=== PATIENT | male | born 1985 | race African-American/Black ===

== ENCOUNTER 2019-03-12 13:52 | Emergency (ER) | payer BC, SELFPAY ==
[2019-03-12 13:53] VITALS: BP 121/66; PULSE 75; RESP 16; TEMP 36.4; BMI 24.5
--- NOTE | 2019-03-12 14:12 | ED.DCSUM_ITS ---
History of Present Illness Chief Complaint: Abd Pain Informant: Patient Onset: Today Context: Sudden Onset Timing: Continuous Quality: Discomfort Location: Epigastrium Current Severity: Mild Maximum Severity: Moderate Worsened by: Nothing Relieved by: Nothing Associated Symptoms: Radiation through to the back Narrative: Patient is a 33-year-old male on no medication with no past medical history presents with epigastric pain. Patient states he was drinking last evening. He had 4-5 drinks throughout the night. He denies hematemesis, melena hematochezia. He states he forced himself to vomit. There was no improvement. He denies food intolerance. He denies history of pancreatitis. He denies shortness of breath, dyspnea on exertion, orthopnea or PND. There is no history of trauma. - Past Medical History (1) No significant past medical history Status: Acute Past Medical History - Allergies and Home Meds Allergies/Adverse Reactions: Allergies No Known Allergies Allergy (Verified 03/12/19 13:55) Primary Care Physician: Miguel Dill MD [Primary Care Provider] - Prior records reviewed: No Past Medical History: None Surgical History: no surgical history Lives: Spouse/ Significant Other Smoking Status: Current every day smoker Alcohol: Rare Drugs: None Review of Systems General: Denies: Chills, Fever, Sweats Eyes: Denies: Visual changes - bilaterally, Blurred Vision - bilaterally, Diplopia ENT: Denies: Bilateral ear pain, Rhinorrhea, Sore throat Cardiovascular: Reports: Chest pain. Denies: Palpitations, Heart racing Respiratory: Denies: Dyspnea, Cough, Dyspnea on exertion, Orthopnea, Paroxysmal nocturnal dyspnea Gastrointestinal: Reports: Abdominal pain, Nausea, Vomiting. Denies: Diarrhea, Constipation, Melena, Hematochezia, -, - Musculoskeletal: Reports: Back pain. Denies: Myalgias, Arthralgias, Neck pain, Swelling, Extremity Pain Skin: Denies: Rash, Wounds Neurological: Denies: Headache, Weakness, Parasthesia, Numbness Psych: Denies: Depression, Anxiety Hematologic: Denies: Easy bruising, Easy bleeding Allergy: Denies: Uticaria, Swelling of the mouth Physical Exam Vital Signs/Narrative: Vital Signs Temp Pulse Resp BP 03/12/19 13:53 97.5 F L 75 16 121/66 H Inital Vital Signs reviewed: Yes General: Well nourished, Well developed, No Acute Distress Head: Normocephalic, Atraumatic Eyes: Perrl, EOMI ENT: Moist mucous membranes, No rhinorrhea Neck: Supple, Nontender Cardiovascular: Regular rate, Regular rhythm, No murmurs Respiratory: No distress, CTA bilaterally, Chest nontender Abdomen: Soft, Nondistended, Normal bowel sounds, No masses, Tender - In the epigastric area and left upper quadrant. Negative for: Hepatomegaly, Splenomegaly, Mass, Pulsatile mass Rectal: Deferred Back: Nontender, Normal Inspection. Negative for: CVA tenderness Extremities: Nontender, No edema Skin: Normal color, No rash Neurological: Alert, Oriented x3, Cranial nerves II-XII grossly intact, Normal Strength, Normal Sensation Psychological: Normal affect, Normal Mood Diagnostic/Tx/Re-eval Laboratory Results 03/12/19 03/12/19 14:25 14:25 WBC 14.8 H RBC 5.17 Hgb 15.7 Hct 45.0 MCV 87.0 MCH 30.4 MCHC 34.9 RDW 12.2 RDW Differential 38.7 Plt Count 172 MPV 12.1 H Immature Gran % (Auto) 0.300 Neut % (Auto) 82.6 H Lymph % (Auto) 9.9 L Warrick % (Auto) 7.0 Eos % (Auto) 0.1 Baso % (Auto) 0.1 Absolute Neuts (auto) 12.3 H Absolute Lymphs (auto) 1.46 Total Counted Not Reportable Sodium 139 Potassium 4.0 Chloride 108 H Carbon Dioxide 26.0 Anion Gap 5 BUN 12 Creatinine 0.93 Estim Creat Clear Calc 125.16 Est GFR (MDRD) Af Amer 120 Est GFR (MDRD) Non-Af 99 BUN/Creatinine Ratio 12.9 Glucose 103 Calcium 8.6 Total Bilirubin 0.90 Direct Bilirubin 0.23 AST 20 ALT 23 Alkaline Phosphatase 74 Total Protein 7.6 Albumin 4.2 Globulin 3.4 Lipase 344 - Rhythm Strip Rhythm Strip: Sinus Rhythm Rate: 77 Ectopy: None - Medical Decision Making With epigastric and left upper quadrant after eating and drinking need to evaluate for pancreatitis. This may represent esophagitis, gastritis peptic ulcer disease. Appropriate blood work was obtained and he was treated with IV Pepcid. Patient report did transient improvement after IV Pepcid. GI cocktail was ordered. Patient was informed of his results., 15:20 Patient was reassessed at 1540. He reports improvement after GI cocktail. The pain is not resolved. Since patient did not have hematemesis and denies black or maroon stool there is no concern for acute GI bleed. Therefore will discharge to home with appropriate home-going instructions. ED Disposition - Plan for ED Patient: Disposition: Home or Assisted Living Diagnosis: Gastritis due to alcohol without hemorrhage Instructions: ED PUD Vs Gastritis Referrals: Miguel Dill MD [Primary Care Provider] - 3-5 Days Additional Instructions: Take either Mylanta or Maalox every 4-6 hours for the next 24 hours.
[2019-03-12 14:38] LABS: Absolute Lymphocyte Count 1.46 X10^3/ul (0.83-4.51); Absolute Neutrophil Count 12.3 X10^3/uL (2.0-7.7); Basophil# 0.02 X10^3/uL; Basophil% 0.1 % (0-1); Eosinophil# 0.02 X10^3/uL; Eosinophils% 0.1 % (0-5); Hemoglobin 15.7 g/dl (13.0-16.5); Lymphocyte # 1.46 X10^3/ul (4.0); Lymphocyte % 9.9 % (19-41); Mean Corp Hgb Conc 34.9 g/gl (32-36); Mean Corpuscular Hgb 30.4 pg (27.0-32.0); Mean Platelet Vol. 12.1 fl (6.2-12.0); Monocyte# 1.03 X10^3/uL; Neutrophil # 12.25 X10^3/uL (2.7-7.7); Neutrophil % 82.6 % (47-70); Platelet Count 172 K/mm3 (150-450); RBC Distribution Width CV 12.2 % (11.6-14.6); RBC Distribution Width SD 38.7 fl (35.1-43.9); Red Blood Count 5.17 M/mm3 (4.6-6.2); White Blood Count 14.8 K/mm3 (4.4-11.0)
[2019-03-12 14:41] LABS: POSITIVE COUNT NO; POSITIVE DIFFERENTIAL NO; POSITIVE MORPHOLOGY NO
[2019-03-12 14:51] LABS: AST(SGOT) 20 U/L (15-37); Alanine Aminotransfer ALT/SGPT 23 U/L (16-61); Albumin, Serum 4.2 g/dL (3.2-5.0); Alkaline Phosphatase 74 U/L (45-117); Anion Gap 5 (5-15); BUN 12 mg/dL (7-18); BUN/Creat Ratio 12.9 RATIO (10-20); Bilirubin, Direct 0.23 mg/dL (0.00-0.30); Calcium,Total 8.6 mg/dL (8.5-10.1); Chloride 108 mmol/L (98-107); Creatinine, Serum 0.93 mg/dL (0.70-1.30); EST Glomerular Filtration Rate 99 mL/min (>60); Est Glom Filt Rate - Afr Amer 120 mL/min (>60); Estimated Creatinine Clearance 125.16 ml/min; Globulin 3.4 g/dL (2.2-4.2); Glucose 103 mg/dL (74-106); Lipase 344 U/L (73-393); Protein, Total 7.6 g/dL (6.4-8.2); Sodium Level 139 mmol/L (136-145)
[2019-03-12] MEDS: Mag Hydrox/Al Hydrox/Simeth 30 ML UDC PO (15:36)
[2019-03-12 15:59] VITALS: BP 114/72; PULSE 61; RESP 16; O2SAT 98
== END 2019-03-12 16:00 | disposition home or self-care (01) ==
PROVIDERS: Emergency Provider Emergency Medicine; Family Provider Family Medicine; PCP Family Medicine
DX: K29.20 Alcoholic gastritis without bleeding (principal); F10.10 Alcohol abuse, uncomplicated; Y90.9 Presence of alcohol in blood, level not specified
CPT/HCPCS: 80048; 80076; 83690; 85025; 96374; 99284; A4216; J3490

== ENCOUNTER → 2021-11-10 14:07 | Outpatient (CLI) | payer BC, SELFPAY | PROVIDERS: PCP Family Medicine; Referring Provider Family Medicine; Visit Provider Family Medicine | DX: U07.1 COVID-19 (principal) | CPT/HCPCS: 87635; 87804; C9803; U0005; U0003 ==

== ENCOUNTER 2022-01-01 16:20 | Outpatient (CLI) | payer BC, SELFPAY ==
[2022-01-01 18:01] LABS: ALB/GLOB Ratio 1.1 RATIO (0.9-2.4); AST(SGOT) 23 U/L (15-37); Alanine Aminotransfer ALT/SGPT 29 U/L (16-61); Albumin, Serum 4.1 g/dL (3.2-5.0); Alkaline Phosphatase 73 U/L (45-117); Anion Gap 4 (5-15); BUN 8 mg/dL (7-18); BUN/Creat Ratio 8.9 RATIO (10-20); Chloride 105 mmol/L (98-107); Cholesterol 127 mg/dL (200); EST Glomerular Filtration Rate 102 mL/min (>60); Est Glom Filt Rate - Afr Amer 123 mL/min (>60); Globulin 3.6 g/dL (2.2-4.2); Glucose 94 mg/dL (74-106); High Density Lipoprotein 60 mg/dL; Potassium 4.1 mmol/L (3.5-5.1); Protein, Total 7.7 g/dL (6.4-8.2); Sodium Level 138 mmol/L (136-145); Triglycerides 38 mg/dL; Very Low Density Lipoprotein 8 mg/dL (5-40)
== END 2022-01-01 23:59 | disposition home or self-care (01) ==
LOC: MTLAB 16:22
PROVIDERS: PCP Family Medicine; Referring Provider Physician Assistant Medical; Visit Provider Physician Assistant Medical
DX: L70.0 Acne vulgaris (principal); Z79.899 Other long term (current) drug therapy
CPT/HCPCS: 36415; 80053; 80061

== ENCOUNTER 2024-10-02 22:43 | Emergency (ER) | payer OTHER, SELFPAY ==
[2024-10-02 22:44] VITALS: BP 142/77; PULSE 70; RESP 16; TEMP 36.2; O2SAT 100; BMI 22.2
--- NOTE | 2024-10-02 22:50 | EDS_ITS ---
HPI HPI - Psych History of Present Illness Chief Complaint: Mental Health [facility] Medical History (Updated 10/02/24 @ 22:52 by Jodee Can) Marijuana smoker ADD (attention deficit disorder) Home Medications ?Medication ?Instructions ?Recorded ?Last Taken ?Type lisdexamfetamine 30 mg capsule 30 mg PO DAILY 10/02/24 Unknown History (Vyvanse) Allergy/AdvReac Type Severity Reaction Status Date / Time No Known Allergies Allergy Verified 10/02/24 22:44 Social History Smoking Status: Current every day smoker EXAM Physical Exam Const Vital Signs: 10/02/24 22:44 10/02/24 23:43 10/03/24 00:00 Temperature 97.1 F L Temperature Source Temporal Pulse Rate 70 56 L 56 L Respiratory Rate 16 16 16 Blood Pressure 142/77 H 128/77 H 128/77 H Blood Pressure Mean 98 94 94 Pulse Ox 100 100 100 Oxygen Delivery Method Room Air Room Air Room Air MDM MDM MDM Narrative Medical decision making narrative: HISTORY OF PRESENT ILLNESS: 39-year-old male presents with concern for psychosis. He is companied by his parents. He states they think I am having a psychotic episode. He further states they say I am saying things that do not make any sense. Patient states reality is an illusion. Patient denies SI or HI. Patient denies auditory or visual hallucinations. Per the patient's family the symptoms have been ongoing since late summer early fall. They note tonight the patient mentioned that he is going to . Patient states he is not suicidal. He states everyone dies at some point. He is only stating the fact of our existence here in this dimension is only transient. REVIEW OF SYSTEMS: Pertinent positives: Grandiosity, delusions of grandeur, Pertinent negatives: Chest pain, shortness of breath, headaches, loss of vision, focal neurologic deficits PHYSICAL EXAM: Nursing triage notes reviewed, Vital signs reviewed Constitutional: please see mdm HENT: MMM Eyes: Pupils equal round and reactive to light, Extraocular muscles intact Neck: No stridor, no JVD, full neck ROM Lungs: Clear to auscultation, No wheezing or rales. No increased work of breathing, no conversational dyspnea, no accessory muscle use, no nasal flaring. No respiratory distress noted Heart: Regular rate and rhythm, No murmurs, No rubs and No gallops, 2+ distal pulses (radial, femoral, posterior tibial) in all extremities Abdomen: Soft, there is no tenderness, rigidity, rebound or guarding, no obvious peritoneal signs, no palpable pulsatile abdominal masses, no auscultated abdominal bruit : No CVAT Extremities: No edema Neuro: No focal neurological deficits, cranial nerves II through XII intact, 5/5 strength in all extremities. Intact sensation to light touch in all extremities, 2+ reflexes bilateral patella tendons. Normal gait. No ataxia. Skin: No rash or lesions noted Psych: Transient episodes of tangential thinking and slightly pressured speech but quickly resolving to normal speech. I will consider the patient's affect to be normal. He is in a good mood. He is a goal-directed thought process. He appears to be self-regulating well. He does not appear to be responding to internal stimuli. MEDICAL DECISION MAKING: Chief Complaint: External records reviewed: Reviewed Clinisync Factors affecting care: ADHD Social determinants of health: Smoker History obtained from others: Parents Consults: Behavioral health/crisis MDM Narrative: The patient was initially hemodynamically stable, afebrile and nontoxic- appearing. Exam without focal deficits. I considered the following differential diagnosis: ICH, mass, electrolyte disturbance, acute psychosis ALL IMAGES (IF OBTAINED) HAVE BEEN PERSONALLY REVIEWED AND INTERPRETED BY MYSELF. CT scan of the head was negative for mass bleed or other acute intracranial normality CBC without leukocytosis, severe anemia, no thrombocytopenia. BMP without evidence of significant electrolyte abnormalities, no anion gap, no acute kidney injury. Serum alcohol negative TSH was slightly elevated and is not consistent with hyperthyroidism Discussed the case with behavioral health/crisis. We concluded the patient not meet criteria for inpatient admission. He had no suicidal ideation, homicidal ideation, auditory visual hallucinations. He appeared to be self-regulating well. And while he did have some different thoughts this is not grounds for admission at this time. Will give close outpatient resources. The patient and/or family, caregivers express understanding. The patient and/or family, caregivers agrees with the plan. Shared decision making: I will have a discussion with the patient and or visitors regarding ris k/benefits of further testing or admission. They will be made aware of of the risk/benefits inherent in this decision they will be given the opportunity to voice understanding. Total critical care time today provided was at least 0 minutes. This excludes separately billable procedures. Critical care time (if documented) is secondary to the patient having high probability of clinically significant/life threatening deterioration in the patient's condition which required my urgent intervention. Impression: 1. Delusional thoughts 2. History of ADD Dispo: discharge home This note was generated with [employer] dictation software. It may contain incorrect words, spelling, and punctuation that were not noted in review of the chart prior to signing. Lab Data Labs: Laboratory Results - last 24 hr 10/02/24 10/02/24 23:25 23:44 WBC 9.6 RBC 4.96 Hgb 14.9 Hct 44.3 MCV 89.3 MCH 30.0 MCHC 33.6 RDW Std Deviation 38.0 RDW Coeff of Lakshmi 11.7 Plt Count 227 MPV 11.4 Immature Gran % (Auto) 0.500 Neut % (Auto) 74.7 H Lymph % (Auto) 17.9 L Clay % (Auto) 6.3 Eos % (Auto) 0.2 Baso % (Auto) 0.4 Absolute Neuts (auto) 7.2 Absolute Lymphs (auto) 1.72 Nucleated RBC % 0 Sodium 139 Potassium 3.5 Chloride 105 Carbon Dioxide 26.0 Anion Gap 8 BUN 9 Creatinine 1.05 Estim Creat Clear Calc 100.37 Est GFR (MDRD) Af Amer 102 Est GFR (MDRD) Non-Af 84 BUN/Creatinine Ratio 8.6 L Glucose 105 Calcium 9.3 TSH 4.910 H Urine Opiates Screen NEGATIVE Urine Methadone Screen NEGATIVE Ur Barbiturates Screen NEGATIVE Ur Phencyclidine Scrn NEGATIVE Ur Amphetamines Screen POSITIVE H MDMA (Ecstasy) Screen NEGATIVE U Benzodiazepines Scrn NEGATIVE Urine Cocaine Screen NEGATIVE U Cannabinoids Screen POSITIVE H Ur Drug Screen Comment Ethyl Alcohol 4.0 Radiography Diagnostic Testing: Clinical Impression(s) from Imaging Studies Brain CT 10/02/24 23:12 IMPRESSION: Negative head/brain CT without intravenous contrast. Electronically Signed: Fabian Mcneil DO at 23:47 EST , Discharge Plan Triage Chief Complaint: Mental Health ED Provider: Jesse Calero Dx/Rx/DC Orders Instructions: ED Schizophrenia, General Prescriptions: No Action lisdexamfetamine [Vyvanse] 30 mg capsule 30 mg PO DAILY Primary Care Provider: Miguel Dill Referrals: Miguel Dill MD [Primary Care Provider] - Lawrence Marinelli DO [Med Staff - [employer] Technician] - Activity Restrictions/Additional Instructions: Thank you for trusting us with your care today! Your labs are reassuring including thyroid function test. Your CT scan was also reassuring. There were no obvious physical or medical issues found on your workup. I recommend decreasing/discontinuing use of your ADD medication and consultation with your prescribing physician. Please return to the emergency department if your symptoms change or worsen. Please follow with your primary care physician for further outpatient evaluation and management. Print Language: Romansh Disposition Disposition: Home, Self Care
--- NOTE | 2024-10-02 23:12 | CT_ITS ---
EXAM: CT HEAD WITHOUT INTRAVENOUS CONTRAST CLINICAL INDICATION: Change in behavior TECHNIQUE: Multiple axial images were obtained of the head without intravenous contrast. This CT exam was performed using one or more of the following dose reduction techniques: automated exposure control, adjustment of the mA and/or kV according to patient size, and/or use of iterative reconstruction technique. COMPARISON: No relevant prior studies available. FINDINGS: BRAIN AND EXTRA-AXIAL SPACES: No significant abnormality. No intra- or extra-axial hemorrhage. No evidence of acute infarct. No intracranial mass or mass effect. There is preservation of the alberts/white matter interface. Ventricles are appropriate for age. Basal cisterns are patent. BONES/JOINTS: No significant abnormality. No discrete lytic or blastic abnormalities. SINUSES: No significant findings. MASTOID AIR CELLS: No significant effusion. ORBITS: No acute findings. CT/Brain/Head without Contrast IMPRESSION: Negative head/brain CT without intravenous contrast. Electronically Signed: Fabian Mcneil DO at 23:47 EST ,
[2024-10-02 23:33] LABS: Absolute Lymphocyte Count 1.72 X10^3/uL (0.83-4.51); Absolute Neutrophil Count 7.2 X10^3/uL (2.0-7.7); Basophil# 0.04 X10^3/uL; Basophil% 0.4 % (0-1); Eosinophil# 0.02 X10^3/uL; Eosinophils% 0.2 % (0-5); Hematocrit 44.3 % (40-54); Hemoglobin 14.9 g/dL (13.0-16.5); Lymphocyte # 1.72 X10^3/ul (0.83-4.51); Lymphocyte % 17.9 % (19-41); Mean Corp Hgb Conc 33.6 g/dL (32-36); Mean Corpuscular Volume 89.3 fL (80-94); Mean Platelet Vol. 11.4 fl (6.2-12.0); Monocyte# 0.61 X10^3/uL; Monocyte% 6.3 % (0-10); NRBC Flagged by Analyzer 0 % (0-5); Neutrophil # 7.17 X10^3/uL (2.7-7.7); Neutrophil % 74.7 % (47-70); Platelet Count 227 K/mm3 (150-450); RBC Distribution Width CV 11.7 % (11.6-14.6); Red Blood Count 4.96 M/mm3 (4.6-6.2); White Blood Count 9.6 K/mm3 (4.4-11.0)
[2024-10-02 23:43] VITALS: BP 128/77; PULSE 56; RESP 16; O2SAT 100
[2024-10-02 23:48] LABS: Anion Gap 8 (5-15); BUN 9 mg/dL (7-18); BUN/Creat Ratio 8.6 RATIO (10-20); Calcium,Total 9.3 mg/dL (8.5-10.1); Chloride 105 mmol/L (98-107); Creatinine, Serum 1.05 mg/dL (0.70-1.30); EST Glomerular Filtration Rate 84 mL/min (>60); Est Glom Filt Rate - Afr Amer 102 mL/min (>60); Estimated Creatinine Clearance 100.37 ml/min; Glucose 105 mg/dL (74-106); Potassium 3.5 mmol/L (3.5-5.1); Sodium Level 139 mmol/L (136-145)
[2024-10-03] VITALS: BP 128/77; PULSE 56; RESP 16; O2SAT 100
[2024-10-03 00:17] LABS: Amphetamine Urine VISTA POSITIVE (<1000 ng/mL); Barbiturate Urine VISTA NEGATIVE (< 200 ng/mL); Benzodiazepine Urine VISTA NEGATIVE (< 200 ng/mL); Cocaine Urine VISTA NEGATIVE (< 300 ng/mL); Ecstacy Urine VISTA NEGATIVE (< 500 ng/mL); Methadone Urine VISTA NEGATIVE (< 300 ng/mL); PCP Urine VISTA NEGATIVE (< 25 ng/mL); THC Urine VISTA POSITIVE (< 50 ng/mL)
[2024-10-03 01:43] VITALS: BP 120/80; PULSE 57; RESP 16; TEMP 36.8; O2SAT 100
[2024-10-03 06:32] LABS: Vista UDS pH Range 6
== END 2024-10-03 01:49 | disposition home or self-care (01) ==
PROVIDERS: Emergency Provider Emergency Medicine; PCP Family Medicine; Visit Provider Emergency Medicine
DX: F29 Unspecified psychosis not due to a substance or known physiological condition (principal); F90.9 Attention-deficit hyperactivity disorder, unspecified type; F17.200 Nicotine dependence, unspecified, uncomplicated
CPT/HCPCS: 70450; 80048; 80307; 82077; 84443; 85025; 99284